=== PATIENT | male | born 1980 | race Caucasian/White ===

== ENCOUNTER 2022-11-07 05:23 | Emergency (ER) | payer BC, SELFPAY ==
[2022-11-07 05:31] VITALS: BP 153/89; PULSE 69; RESP 18; TEMP 36.1; O2SAT 99; BMI 40.6
[2022-11-07 05:38] VITALS: PULSE 89
--- NOTE | 2022-11-07 05:47 | ED.BACK ---
HPI - Back Pain/Injury General Time Seen by Provider: 05:47 Date Seen: 11/07/22 Chief Complaint: Back Injury/Pain Stated Complaint: abdominal pain Time Seen by Provider: 11/07/22 05:47 Source: patient, RN notes reviewed and old records reviewed Mode of arrival: ambulatory Limitations: no limitations History of Present Illness HPI Narrative: 42-year-old male who presents today with about 8 hours of right-sided back and flank pain. Abrupt onset. Denies urinary symptoms, did vomit. Pain is constant, not worse with movement. No diarrhea. Took Tylenol with no improvement. Related Data Previous Rx's Medication Instructions Recorded ondansetron 4 mg disintegrating 4 mg PO Q6H #20 tabs 11/07/22 tablet oxycodone 5 mg capsule 5 mg PO Q6H PRN pain #20 caps 11/07/22 Allergies Allergy/AdvReac Type Severity Reaction Status Date / Time No Known Drug Allergies Allergy Verified 11/07/22 05:34 Review of Systems Status of ROS: Reports: 10 or more systems reviewed and unremarkable except as noted in History and below PFSH PFSH Social History Smoking Status: Never smoker Do you use any of these nicotine containing products: None How often do you have a drink containing alcohol: never AUDIT-C Alcohol total score: 0 Non-prescribed substance use: denies use Exam Narrative: Exam Narrative: General: Well-developed and well-nourished, no acute distress Head: Atraumatic and normocephalic Eyes: Pupils are equal reactive, extraocular motions intact, conjunctiva clear ENT: External nose and ears are normal, posterior pharynx without erythema or exudate Neck: No midline cervical tenderness, full spontaneous range of motion the neck, trachea midline, no adenopathy Heart: Regular rate and rhythm no murmurs or thrills Lungs: Clear to auscultation bilaterally without wheezes or crackles Abdomen: Soft, nontender, nondistended with active bowel sounds, right CVA tenderness Musculoskeletal: No tenderness, deformity, or edema Neurologic: Awake, alert, and oriented x3, no gross focal neurologic deficits, cranial nerves intact as tested Psych: Mood and affect are appropriate Skin: No rashes Const: Vital Signs, click to edit/add: Vital Signs - 24 hr 11/07/22 05:31 11/07/22 05:38 Temperature 97 F L Pulse Rate [Pulse Oximeter] 69 89 Respiratory Rate 18 Blood Pressure [Ri ght Upper Arm] 153/89 H Pulse Oximetry 99 Oxygen Delivery Me thod Room Air Course Course ED Course: Patient seen examined, prior records reviewed. Patient presents with abrupt onset right-sided flank pain, no urinary symptoms, not worse with movement. On exam here, appears uncomfortable, right CVA tenderness. Concern for possible kidney stone. Possible retrocecal appendicitis as well although patient has no right-sided abdominal tenderness in the lower quadrant or upper quadrant. Labs and CT scan ordered along with Toradol and Zofran. Reevaluation(s) Time of Reevaluation #1: 06:45 Reevaluation #1: CT scan independently interpreted by me demonstrates mild hydronephrosis with a 6 x 4 mm stone in the mid ureter. Labs are pending, anticipate discharge with anticipatory follow-up with urology. Patient recheck, discussed finding on CT. Labs and urinalysis are still pending. Patient has requested additional pain medicine, Dilaudid and oxycodone ordered. Time of Reevaluation #2: 07:33 Reevaluation #2: Labs independently interpreted by me with leukocytosis, reassuring basic panel with creatinine 1.3, no prior for comparison. Urinalysis with blood and ketones, negative nitrites, negative leukocyte esterase, few bacteria. Patient is given additional medication for pain and plan for discharge. Vital Signs Vital signs: Initial Vital Signs Temperature 97 F L 11/07/22 05:31 Temperature Source Temporal Artery Scan 11/07/22 05:31 Pulse Rate 69 11/07/22 05:31 Respiratory Rate 18 11/07/22 05:31 Blood Pressure 153/89 H 11/07/22 05:31 Blood Pressure Mean 110 H 11/07/22 05:31 Blood Pressure Position Supine 11/07/22 05:31 Pulse Oximetry 99 11/07/22 05:31 Oxygen Delivery Method Room Air 11/07/22 05:31 Vital Signs Temperature 97 F L 11/07/22 05:31 Pulse Rate 69 11/07/22 05:31 Respiratory Rate 18 11/07/22 05:31 Blood Pressure 153/89 H 11/07/22 05:31 Pulse Oximetry 99 11/07/22 05:31 Oxygen Delivery Method Room Air 11/07/22 05:31 Temperature 97 F L 11/07/22 05:31 Pulse Rate 89 11/07/22 05:38 Respiratory Rate 18 11/07/22 05:31 Blood Pressure 153/89 H 11/07/22 05:31 Pulse Oximetry 99 11/07/22 05:31 Oxygen Delivery Method Room Air 11/07/22 05:31 MDM - Back Pain/Injury Lab Data Labs: Lab Results 11/07/22 11/07/22 Range/Units 06:01 06:09 WBC 12.09 H (4.50-11.00) K/uL RBC 5.33 (4.30-5.90) m/uL Hgb 15.0 (13.5-17.5) gm/dL Hct 44.1 (37.0-53.0) % MCV 83 (80-100) fL MCH 28 (26-34) pg MCHC 34 (32-36) gm/dL RDW Coeff of Jyotsna 12.9 (11.5-15.5) % Plt Count 340 (140-440) K/uL Neut % (Auto) 85.2 H (42.0-72.0) % Lymph % (Auto) 9.4 L (20-44) % Coke % (Auto) 4.5 (0.0-11.0) % Eos % (Auto) 0.2 (0.0-7.0) % Baso % (Auto) 0.3 (0.0-3.0) % Neut # (Auto) 10.30 H (1.7-7.0) K/uL Lymph # (Auto) 1.10 (0.90-2.90) K/uL Coke # (Auto) 0.50 (0.00-0.90) K/UL Eos # (Auto) 0.00 (0.00-0.50) K/uL Baso # (Auto) 0.00 (0.00-0.30) K/uL Abs Immat Gran (auto) 0.00 (0.00-0.30) K/uL Imm/Tot Granulo (auto) 0.4 % Sodium 136 (135-149) mmol/L Potassium 4.1 (3.6-5.1) mmol/L Chloride 102 (96-114) mmol/L Carbon Dioxide 26 (20-32) mmol/L Anion Gap 8 (7-15) mEq/L BUN 11 (5-24) mg/dL Creatinine 1.3 (0.5-1.5) mg/dL Estimated Creat Clear 87.57 Estimated GFR 70 ml/min Glucose 184 H (60-115) mg/dL Calcium 9.5 (8.4-10.6) mg/dL Urine Color Ave A (Yellow) Urine Appearance Clear (Clear) Urine pH 6.0 (5.0-8.5) Ur Specific [place] >= 1.030 (1.000-1.030) Urine Protein 2+ A (Negative) Urine Glucose (UA) Negative (Negative) Urine Ketones Trace A (Negative) Urine Blood 3+ A (Negative) Urine Nitrite Negative (Negative) Urine Bilirubin 1+ A (Negative) Urine Urobilinogen 0.2 (0.2-1.0) Ur Leukocyte Esterase Negative (Negative) Urine RBC 25-50 A (0-2) Urine WBC 0-2 (0-5) Ur Squamous Epith Cells Few (None-Few) Calcium Oxalate Crystal Moderate A (None) Urine Bacteria Few A (None) Urine Mucus Moderate A (None) Discharge Plan Discharge Clinical Impression: Right ureteral calculus Patient Disposition: Home w/ Parent or Adult Condition: Stable Instructions: Ureteral Stones (ED) Additional Instructions: Drink to thirst Take Tylenol 1000 mg every 6 hours alternating with ibuprofen 400 mg every 6 hours scheduled for baseline pain control. Take oxycodone for pain not controlled with these medications. Use Zofran as needed. Follow-up with Urology, call for an appointment. [facility] [phone] [facility] [phone] [facility] [phone] If your pain is not controlled with medications, or if you develop a fever or not able to take her medications due to nausea vomiting, follow-up in the emergency department. Recommendation and would be to follow-up at [facility] or [facility] in [place], [facility] in [facility], or [facility] where they have a urologist to can treat your kidney stone and place a stent if needed. Activity Level: No Restrictions Prescriptions: New ondansetron 4 mg tablet,disintegrating 4 mg PO Q6H Qty: 20 0RF oxycodone 5 mg capsule 5 mg PO Q6H PRN (Reason: pain) Qty: 20 0RF Follow Up/Referrals: Rex Majano MD [Primary Care Provider] - Stand Alone Forms: [employer] Info Instructions
--- NOTE | 2022-11-07 05:57 | CRLHL7_ITS ---
For Patients: As a result of the Century Cures Act, medical imaging exams and procedure reports are released immediately into your electronic medical record. You may view this report before your referring provider. If you have questions, please contact your health care provider. INDICATION: Flank pain, kidney stone suspected. TECHNIQUE: CT abdomen and pelvis without contrast, stone protocol. COMPARISON: None. FINDINGS: Kidney/ureters/bladder: A 3 mm stone in the proximal right ureter is causing moderate hydronephrosis. Few tiny stones remain in each kidney. Liver/gallbladder/bile ducts: The liver is normal in size, shape and attenuation. Gallbladder is normal without visualized stones or inflammation. No biliary dilatation. Spleen/pancreas/adrenal glands: The spleen, adrenal glands and pancreas are within normal limits. GI tract: The bowel is unremarkable. Normal appendix. Abdominal wall/omentum/peritoneum: No free air or significant free fluid. No mass or inflammation. Lymph nodes: No lymphadenopathy. Pelvis: Unremarkable pelvis. Lower chest: Unremarkable. IMPRESSION: 3 mm stone in the proximal right ureter causing moderate hydronephrosis. Please note that all CT scans at this facility use dose modulation, iterative reconstruction, and/or weight-based dosing when appropriate to reduce radiation dose to as low as reasonably achievable. Dictated by Maximino Temple MD @ 11/07/2022 6:59:23 AM (Electronically Signed)
[2022-11-07 06:45] LABS: Appearance Urine Clear (Clear); Bilirubin Urine 1+ (Negative); Blood Urine 3+ (Negative); Color Urine Amber (Yellow); Glucose Urine Negative (Negative); Ketones Urine Trace (Negative); Leukocyte Esterase Urine Negative (Negative); Nitrite Urine Negative (Negative); Protein Urine 2+ (Negative); Specific Gravity Urine >= 1.030 (1.000-1.030); Urobilinogen Urine 0.2 (0.2-1.0)
[2022-11-07 06:54] LABS: Chloride* 102 mmol/L (96-114); Sodium* 136 mmol/L (135-149)
[2022-11-07 06:55] LABS: Potassium* 4.1 mmol/L (3.6-5.1)
[2022-11-07 06:57] LABS: Anion Gap 8 mEq/L (7-15); Carbon Dioxide* 26 mmol/L (20-32); Creatinine* 1.3 mg/dL (0.5-1.5); Est. Creatinine Clearance* 87.57; Estimated Glomerular Filt Rate 70 ml/min
[2022-11-07 06:58] LABS: Blood Urea Nitrogen* 11 mg/dL (5-24); Calcium* 9.5 mg/dL (8.4-10.6); Glucose* 184 mg/dL (60-115)
[2022-11-07] MEDS: OXYCODONE 5 MG TABLET PO (07:05)
[2022-11-07] MEDS: HYDROmorphone 0.5 mg/0.5 ml inj IVP ×2 (07:05→07:59)
[2022-11-07 07:10] LABS: Bacteria Urine Few; Mucus Urine Moderate; RBC Urine 25-50 (0-2); Squamous Epithelial Cell Urine Few (None-Few); WBC Urine 0-2 (0-5)
[2022-11-07 07:13] LABS: Calcium Oxalate Crystals Urine Moderate
[2022-11-07 07:19] LABS: Basophils Percent Auto 0.3 % (0.0-3.0); Eosinophils Percent Auto 0.2 % (0.0-7.0); Hematocrit 44.1 % (37.0-53.0); Immature Granulocytes Pct Auto 0.4 %; Lymphocytes Percent Auto 9.4 % (20-44); Mean Corpuscular HGB Conc 34 gm/dL (32-36); Mean Corpuscular Hemoglobin 28 pg (26-34); Mean Corpuscular Volume 83 fL (80-100); Monocytes Percent Auto 4.5 % (0.0-11.0); Neutrophils Percent Auto 85.2 % (42.0-72.0); Platelet Count* 340 K/uL (140-440); RDW Coefficient of Variation % 12.9 % (11.5-15.5); Red Blood Count 5.33 m/uL (4.30-5.90); White Blood Count* 12.09 K/uL (4.50-11.00)
[2022-11-07 07:20] LABS: Slide Review Reflex No
[2022-11-07 08:11] VITALS: PULSE 67; RESP 16; O2SAT 95
--- NOTE | 2022-11-07 08:21 | ED.NURSE ---
Pt and given discharge instructions and verbalizes understanding of discharge instructions. No further questions asked. IV dc'd and intact.
--- NOTE | 2022-11-07 08:23 | ED.NURSE ---
Pt instructed to follow up with primary care regarding elevated blood sugars.
== END 2022-11-07 08:25 | disposition home or self-care (01) ==
PROVIDERS: Emergency Provider Family Medicine; PCP Internal Medicine
DX: N20.1 Calculus of ureter (principal)
CPT/HCPCS: 36415; 74176; 80048; 81001; 85025; 87086; 96374; 96375; 99284; A9270; J1170